=== PATIENT | male | born 1990 | race Caucasian/White ===

== ENCOUNTER 2020-03-19 12:21 | Inpatient (IN) | payer MEDICAID, SELFPAY ==
[2020-03-19] VITALS (7 sets, daily range): BP systolic 120–137; BP diastolic 58–86; PULSE 76–99; RESP 18–22; TEMP 36.1–37.2; O2SAT 100; BMI 26.5; BMI 27.3
--- NOTE | 2020-03-19 12:33 | ED_ITS ---
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 States symptoms improve he ate the same meal that he had stored in the Fridge 2 days later afterwards he had intensified symptoms of upset stomach but again no diarrhea and feeling overall generally unwell with weakness some vague dizziness that he was feeling like he was going to fall. States subsequently a daily to her he developed black stools which he has had several episodes of and last 1 was last night this morning his stool was more yellow and green. Aside from this suspect food intake he denies any recent travel or sick contacts. No recent illness. No OTC medication use i.e. ibuprofen/NSAIDs. Onset (ago): day(s) Exacerbating factors: none Treatments prior to arrival: none Related Data Home Medications Medication Instructions Recorded Confirmed No Known Home Meds 03/19/20 03/19/20 Allergies Allergy/AdvReac Type Severity Reaction Status Date / Time No Known Allergies Allergy Unverified 12/11/19 19:00 [No Known Allergies*] Review of Systems 2 Review of Systems: Constitutional: No Weight loss, No Fever, No Chills, No Night Sweats, No Fatigue, No Malaise ENT/Mouth: No Hearing loss, No Ear Pain, No Nasal Congestion, No Sinus Pain, No Hoarseness, No sore throat, No Rhinorrhea, No Swallowing Difficulty Eyes: No Eye Pain, No Swelling, No Redness, No Foreign Body, No Discharge, No Vision Changes Cardiovascular: No Chest Pain, No SOB, No Dyspnea on Exertion, No Orthopnea, No Edema, No Palpitations Respiratory: No Cough, No Sputum, No Wheezing, No Smoke Exposure, No Dyspnea Gastrointestinal: + Nausea, No Vomiting, No Diarrhea, No Constipation, mild abdominal Pain diffuse abdominal which resolved, + black stools Genitourinary: No Dysuria, No Urinary Frequency, No Hematuria, No Urinary Incontinence, No Urgency, No Flank Pain, No Urinary Flow Changes, No Hesitancy Musculoskeletal: No joint pain, No Myalgias, No Joint Swelling Skin: No Skin Lesions, No rash Neuro: No Weakness, No Numbness, No Paresthesias, No Loss of Consciousness, + Dizziness/lightheadedness, No Headache Psych: No Social Issues Heme/Lymph: No Bruising, No Bleeding,No Lymphadenopathy Endocrine: No Polyuria, No Polydipsia, No Temperature Intolerance Yes all other systems are reviewed and are negative [facility] Past Medical History Medical History No known health problems Social History Social History Advance Directives: No Advance Directives Information Provided: Yes Physical Exam Vital Signs: Vital Signs: Last Vital Signs Temp 97 F 03/19/20 12:53 Pulse 91 03/19/20 12:53 Resp 18 03/19/20 12:53 BP 137/86 03/19/20 12:53 Pulse Ox 100 03/19/20 12:53 Body Mass Index 26.5 Reviewed Const: General: cooperative and healthy appearing; No acute distress or intoxicated appearing Nutritional Appearance: average body habitus Orientation/consciousness: patient oriented x3 HENMT: Head: Yes normal to inspection Ears: hearing grossly normal b ilaterally Eyes: General: appearance normal, both eyes and all related structures Visual Ross: normal visual ross by confrontation Neck: Neck: Yes normal visual inspection and No tender Thyroid: Thyroid normal Chest: Chest palpation & inspection: normal inspection of the chest Resp: Effort & Inspection: normal respiratory effort Cardio: Jugular venous distension: no JVD Rhythm: regular rhythm Heart sounds: S1 normal heart sound present and S2 normal heart sound present GI: Inspection: Yes normal to inspection Palpation (GI): Soft to palpation Percussion: Yes normal to percussion Auscultation: normal bowel sounds : General: Yes no CVA tenderness Back/Spine/Pelvis: Back: no CVA tenderness Skin: Other: Slightly pale to the hands General skin exam: no rashes or lesions noted Neuro: General: patient oriented x3 Extrem: General: Yes normal to inspection Course Course Course Narrative: Interview otherwise healthy 30-year-old male presenting with complaint of upset GI/black tarry stools with symptoms onset after suspect food at home no prior history. On exam does appear slightly pale for his ethnicity. Plan for labs, type and screen, occult stool. Will treat with gradual fluids. Reevaluation(s) Reevaluation #1: Occult stool positive, visually black stool. Stool sent for analysis. Lab shows H&H of 8.4/ with no previous comparison. Electrolytes otherwise without any significant derangements. CT of the abdomen without any acute abnormalities. Given dose of 80 mg of IV Protonix. GI consulted, plan for admission. Consultations Consultation #1: GI Dr. Dye, ppi, question scope will follow. Admit. Consultation #2: Case discussed with hospitalist Dr. Mercado at bedside for evaluation/admission. Medical Decision Making Lab Data Result diagrams: 03/19/20 13:38 03/19/20 13:44 Labs: Lab Results 03/19/20 03/19/20 03/19/20 Range/Units 13:37 13:37 13:37 WBC (4.8-10.8) X10*3/uL RBC (4.60-5.80) X10*6/uL Hgb (14.0-18.0) g/dl Hct (42-52) % MCV (80-98) fL MCH (27.0-33.0) pg MCHC (31.0-36.0) g/dl RDW (11.0-16.0) % Plt Count (160-400) X10*3/uL MPV (9.4-12.4) fL Immature Gran % (Auto) (0.0-0.4) % Neut % (Auto) (45-73) % Lymph % (Auto) (20-40) % [place] % (Auto) (2-11) % Eos % (Auto) (0-4) % Baso % (Auto) (0-2) % Lymph # (Auto) (1.2-4.9) X10*3/uL [place] # (Auto) (0.1-1.2) X10*3/uL Eos # (Auto) (0.0-0.4) X10*3/uL Baso # (Auto) (0.0-0.2) X10*3/uL Abs Immat Gran (auto) (0.00-0.03) X10*3/uL Absolute Neuts (auto) (2.0-8.3) X10*3/uL Absolute Nucleated RBC (0.0-0.012) X10*3/uL Nucleated RBC % (auto) (0.0-0.2) /100WBC PT (10.8-13.0) SEC INR (0.9-1.1) APTT (24.1-38.0) SEC Sodium (135-145) mmol/L Potassium (3.3-5.1) mmol/l Chloride (96-108) mmol/L Carbon Dioxide (22-29) mmol/L Anion Gap (12-20) BUN (9-16) mg/dL Creatinine (0.5-1.4) mg/dL Estim Creat Clear Calc Estimated GFR Random Glucose (60-115) mg/dL Calcium (8.4-10.2) mg/dL Magnesium (1.6-2.6) mg/dL Total Bilirubin (0.0-1.0) mg/dL AST (5-37) U/L ALT (0-40) U/L Alkaline Phosphatase (39-117) U/L Troponin I High Sens (<3.5-35.0) ng/L Total Protein (6.5-8.0) g/dL Albumin (3.5-5.0) g/dL Urine Color YELLOW Urine Appearance HAZY Urine pH 7.5 (5.0-8.0) Ur Specific [place] 1.025 (1.005-1.025) Urine Protein NEG (NEG-TRACE) MG/DL Urine Glucose (UA) NEG (NEG) MG/DL Urine Ketones NEG (NEG) MG/DL Urine Blood NEG (NEG) Urine Nitrite NEG (NEG) Ur Leukocyte Esterase NEG (NEG) Urine RBC 0 (0) /HPF Urine WBC 0-2 (0-4) /HPF Ur Squamous Epith Cells NONE /LPF Amorphous Sediment 2+ /LPF Urine Bacteria NONE /LPF Stool Occult Blood POS (NEG) Blood Type O Positive Antibody Screen NEGATIVE 03/19/20 03/19/20 03/19/20 Range/Units 13:38 13:38 13:44 WBC 7.8 (4.8-10.8) X10*3/uL RBC 2.81 L (4.60-5.80) X10*6/uL Hgb 8.4 L (14.0-18.0) g/dl Hct 26.3 L (42-52) % MCV 93.6 (80-98) fL MCH 29.9 (27.0-33.0) pg MCHC 31.9 (31.0-36.0) g/dl RDW 13.0 (11.0-16.0) % Plt Count 166 (160-400) X10*3/uL MPV 12.6 H (9.4-12.4) fL Immature Gran % (Auto) 0.6 H (0.0-0.4) % Neut % (Auto) 58.5 (45-73) % Lymph % (Auto) 30.2 (20-40) % [place] % (Auto) 9.0 (2-11) % Eos % (Auto) 1.4 (0-4) % Baso % (Auto) 0.3 (0-2) % Lymph # (Auto) 2.3 (1.2-4.9) X10*3/uL [place] # (Auto) 0.7 (0.1-1.2) X10*3/uL Eos # (Auto) 0.1 (0.0-0.4) X10*3/uL Baso # (Auto) 0.0 (0.0-0.2) X10*3/uL Abs Immat Gran (auto) 0.05 H (0.00-0.03) X10*3/uL Absolute Neuts (auto) 4.5 (2.0-8.3) X10*3/uL Absolute Nucleated RBC 0.000 (0.0-0.012) X10*3/uL Nucleated RBC % (auto) 0.0 (0.0-0.2) /100WBC PT 12.2 (10.8-13.0) SEC INR 1.0 (0.9-1.1) APTT 31.0 (24.1-38.0) SEC Sodium (135-145) mmol/L Potassium (3.3-5.1) mmol/l Chloride (96-108) mmol/L Carbon Dioxide (22-29) mmol/L Anion Gap (12-20) BUN (9-16) mg/dL Creatinine (0.5-1.4) mg/dL Estim Creat Clear Calc Estimated GFR Random Glucose (60-115) mg/dL Calcium (8.4-10.2) mg/dL Magnesium (1.6-2.6) mg/dL Total Bilirubin (0.0-1.0) mg/dL AST (5-37) U/L ALT (0-40) U/L Alkaline Phosphatase (39-117) U/L Troponin I High Sens 6.0 (<3.5-35.0) ng/L Total Protein (6.5-8.0) g/dL Albumin (3.5-5.0) g/dL Urine Color Urine Appearance Urine pH (5.0-8.0) Ur Specific [place] (1.005-1.025) Urine Protein (NEG-TRACE) MG/DL Urine Glucose (UA) (NEG) MG/DL Urine Ketones (NEG) MG/DL Urine Blood (NEG) Urine Nitrite (NEG) Ur Leukocyte Esterase (NEG) Urine RBC (0) /HPF Urine WBC (0-4) /HPF Ur Squamous Epith Cells /LPF Amorphous Sediment /LPF Urine Bacteria /LPF Stool Occult Blood (NEG) Blood Type Antibody Screen 03/19/20 Range/Units 13:44 WBC (4.8-10.8) X10*3/uL RBC (4.60-5.80) X10*6/uL Hgb (14.0-18.0) g/dl Hct (42-52) % MCV (80-98) fL MCH (27.0-33.0) pg MCHC (31.0-36.0) g/dl RDW (11.0-16.0) % Plt Count (160-400) X10*3/uL MPV (9.4-12.4) fL Immature Gran % (Auto) (0.0-0.4) % Neut % (Auto) (45-73) % Lymph % (Auto) (20-40) % [place] % (Auto) (2-11) % Eos % (Auto) (0-4) % Baso % (Auto) (0-2) % Lymph # (Auto) (1.2-4.9) X10*3/uL [place] # (Auto) (0.1-1.2) X10*3/uL Eos # (Auto) (0.0-0.4) X10*3/uL Baso # (Auto) (0.0-0.2) X10*3/uL Abs Immat Gran (auto) (0.00-0.03) X10*3/uL Absolute Neuts (auto) (2.0-8.3) X10*3/uL Absolute Nucleated RBC (0.0-0.012) X10*3/uL Nucleated RBC % (auto) (0.0-0.2) /100WBC PT (10.8-13.0) SEC INR (0.9-1.1) APTT (24.1-38.0) SEC Sodium 136 (135-145) mmol/L Potassium 4.3 (3.3-5.1) mmol/l Chloride 102 (96-108) mmol/L Carbon Dioxide 29 (22-29) mmol/L Anion Gap 9 L (12-20) BUN 12 (9-16) mg/dL Creatinine 0.99 (0.5-1.4) mg/dL Estim Creat Clear Calc 110.6 Estimated GFR > 60 Random Glucose 115 (60-115) mg/dL Calcium 8.6 (8.4-10.2) mg/dL Magnesium 2.1 (1.6-2.6) mg/dL Total Bilirubin 0.3 (0.0-1.0) mg/dL AST 32 (5-37) U/L ALT 59 H (0-40) U/L Alkaline Phosphatase 70 (39-117) U/L Troponin I High Sens (<3.5-35.0) ng/L Total Protein 6.2 L (6.5-8.0) g/dL Albumin 4.0 (3.5-5.0) g/dL Urine Color Urine Appearance Urine pH (5.0-8.0) Ur Specific [place] (1.005-1.025) Urine Protein (NEG-TRACE) MG/DL Urine Glucose (UA) (NEG) MG/DL Urine Ketones (NEG) MG/DL Urine Blood (NEG) Urine Nitrite (NEG) Ur Leukocyte Esterase (NEG) Urine RBC (0) /HPF Urine WBC (0-4) /HPF Ur Squamous Epith Cells /LPF Amorphous Sediment /LPF Urine Bacteria /LPF Stool Occult Blood (NEG) Blood Type Antibody Screen Imaging Data Abdominal/pelvis CT with IV contrast: Radiologist's impression: [address] [address] [address] Scan Report Signed Patient: Sarah BrandMR#: [id number] : 1990Acct:[id number] Age/Sex: 30 / MADM Date: 03/19/20 Loc: HO.ED Attending Dr: Ordering Physician: Giovany Babb NP Date of Service: 03/19/20 Procedure(s): CT abdomen pelvis w con Accession Number(s): [id number] cc: Giovany Babb MONOGRAM AND LETTER PASTER~ EXAMINATION: CT ABDOMEN AND PELVIS WITH CONTRAST CLINICAL INFORMATION: Abdominal pain COMPARISON: None TECHNIQUE: Multidetector volumetric images were obtained from the superior aspect of the liver through the pubic symphysis following administration 85 mL of Omnipaque 350 intravenous contrast. Sagittal and coronal reformatted images were obtained on the technologist's workstation. Oral contrast: No This CT examination was performed using dose optimization techniques as appropriate, variously including the following: *Automated exposure control *Adjustment of mA and/or kV according to patient size (this includes techniques or standardized protocols for targeted exams where dose is matched to indication/reason for exam; i.e. extremities or head) *Use of iterative reconstruction technique DLP: 564 mGy-cm FINDINGS: LUNG BASES: The visualized lung bases are unremarkable. LIVER, GALLBLADDER, AND BILIARY TREE: The liver is normal in size, shape, and attenuation. There are couple sub-5 mm hypodensities within the medial segment, statistically a small cyst. No suspicious liver lesions. No intrahepatic or extrahepatic biliary ductal dilatation is present. Gallbladder unremarkable. PANCREAS: Unremarkable. SPLEEN: Unremarkable. ADRENAL GLANDS: Unremarkable. KIDNEYS AND URETERS: The kidneys are normal in size, shape, and attenuation. No hydronephrosis, hydroureter, or calculi seen. No perinephric stranding. BLADDER: Unremarkable. GASTROINTESTINAL TRACT: The small and large bowel are unremarkable. The appendix is unremarkable. ABDOMINAL WALL: No significant hernia is appreciated. LYMPH NODES: Normal. VASCULAR: Unremarkable. PELVIC VISCERA: Unremarkable. OSSEOUS STRUCTURES: Unremarkable. CT/CT abdomen pelvis w con IMPRESSION: No significant abnormality. Dictated By:TOREY JAIN MD Signed By:<Electronically signed by TOREY JAIN MD in OV>03/19/20 1509 DD/ 1411 TD/TT: Music Coordinator: SORAYA Discharge Plan Discharge Clinical Impression: Acute upper gastrointestinal bleeding, Anemia, Gastroenteritis Patient Disposition: Admitted As Inpatient
[2020-03-19 13:48] LABS: Basophils Percent Auto 0.3 % (0-2); Eosinophils Absolute Auto 0.1 X10*3/uL (0.0-0.4); Eosinophils Percent Auto 1.4 % (0-4); Hematocrit 26.3 % (42-52); Hemoglobin 8.4 g/dl (14.0-18.0); Imm Gran Abs Auto 0.05 X10*3/uL (0.00-0.03); Imm Gran Pct Auto 0.6 % (0.0-0.4); Lymphocytes Absolute Auto 2.3 X10*3/uL (1.2-4.9); Lymphocytes Percent Auto 30.2 % (20-40); Mean Corpuscular HGB Conc 31.9 g/dl (31.0-36.0); Mean Corpuscular Hemoglobin 29.9 pg (27.0-33.0); Mean Corpuscular Volume 93.6 fL (80-98); Mean Platelet Volume 12.6 fL (9.4-12.4); Monocytes Absolute Auto 0.7 X10*3/uL (0.1-1.2); Neutrophils Absolute Auto 4.5 X10*3/uL (2.0-8.3); Neutrophils Percent Auto 58.5 % (45-73); Platelet Count 166 X10*3/uL (160-400); Red Blood Count 2.81 X10*6/uL (4.60-5.80); White Blood Count 7.8 X10*3/uL (4.8-10.8)
[2020-03-19 13:50] LABS: Glucose Urine UA NEG (NEG); Leukocyte Esterase Urine NEG (NEG); Nitrite Urine NEG (NEG); PH 7.5 (5.0-8.0); Specific Gravity - Urine 1.025 (1.005-1.025); Urine Blood NEG (NEG); Urine Ketones NEG (NEG); Urine Protein NEG (NEG-TRACE)
[2020-03-19 13:50] LABS: MANUAL DIFF FLAG NO
[2020-03-19 13:52] LABS: Appearance Urine HAZY; Color Urine YELLOW
[2020-03-19 13:55] LABS: Prothrombin Time 12.2 SEC (10.8-13.0)
[2020-03-19] MEDS: 0.9 % Sodium Chloride 1,000 ML 999 ML IV (13:55)
[2020-03-19 14:06] LABS: WBC Urine 0-2 /HPF (0-4)
[2020-03-19 14:07] LABS: Amorphous Sediment Urine 2+ /LPF; RBC Urine 0 /HPF (0)
--- NOTE | 2020-03-19 14:09 | ECG_ITS ---
Test Reason : WEAKNESS Blood Pressure : / mmHG Vent. Rate : 079 BPM Atrial Rate : 079 BPM P-R Int : 128 ms QRS Dur : 104 ms QT Int : 376 ms P-R-T Axes : 056 004 005 degrees QTc Int : 431 ms Sinus rhythm with marked sinus arrhythmia Otherwise normal ECG When compared with ECG of 23-MAR-2015 11:29, Incomplete right bundle branch block is no longer Present Referred By: Giovany Babb Electronically Signed By:HEIDI CHACON MD
--- NOTE | 2020-03-19 14:11 | CT_ITS ---
EXAMINATION: CT ABDOMEN AND PELVIS WITH CONTRAST CLINICAL INFORMATION: Abdominal pain COMPARISON: None TECHNIQUE: Multidetector volumetric images were obtained from the superior aspect of the liver through the pubic symphysis following administration 85 mL of Omnipaque 350 intravenous contrast. Sagittal and coronal reformatted images were obtained on the technologist's workstation. Oral contrast: No This CT examination was performed using dose optimization techniques as appropriate, variously including the following: *Automated exposure control *Adjustment of mA and/or kV according to patient size (this includes techniques or standardized protocols for targeted exams where dose is matched to indication/reason for exam; i.e. extremities or head) *Use of iterative reconstruction technique DLP: 564 mGy-cm FINDINGS: LUNG BASES: The visualized lung bases are unremarkable. LIVER, GALLBLADDER, AND BILIARY TREE: The liver is normal in size, shape, and attenuation. There are couple sub-5 mm hypodensities within the medial segment, statistically a small cyst. No suspicious liver lesions. No intrahepatic or extrahepatic biliary ductal dilatation is present. Gallbladder unremarkable. PANCREAS: Unremarkable. SPLEEN: Unremarkable. ADRENAL GLANDS: Unremarkable. KIDNEYS AND URETERS: The kidneys are normal in size, shape, and attenuation. No hydronephrosis, hydroureter, or calculi seen. No perinephric stranding. BLADDER: Unremarkable. GASTROINTESTINAL TRACT: The small and large bowel are unremarkable. The appendix is unremarkable. ABDOMINAL WALL: No significant hernia is appreciated. LYMPH NODES: Normal. VASCULAR: Unremarkable. PELVIC VISCERA: Unremarkable. OSSEOUS STRUCTURES: Unremarkable. CT/CT abdomen pelvis w con IMPRESSION: No significant abnormality.
[2020-03-19 14:14] LABS: OBS Int Ctl Valid YES; OBS1 POS (NEG)
[2020-03-19 14:15] LABS: Alanine Aminotransferase 59 U/L (0-40); Alkaline Phosphatase 70 U/L (39-117); Anion Gap 9 (12-20); Aspartate Amino Transferase 32 U/L (5-37); Bilirubin Total 0.3 mg/dL (0.0-1.0); Blood Urea Nitrogen 12 mg/dL (9-16); Calcium 8.6 mg/dL (8.4-10.2); Carbon Dioxide 29 mmol/L (22-29); Chloride 102 mmol/L (96-108); Creatinine Clr Calc Pharmacy 110.6; Estimated Glomerular Filt Rate > 60; Glucose Random 115 mg/dL (60-115); Magnesium 2.1 mg/dL (1.6-2.6); Potassium 4.3 mmol/l (3.3-5.1); Sodium 136 mmol/L (135-145); Total Protein 6.2 g/dL (6.5-8.0)
[2020-03-19] MEDS: Pantoprazole Sodium 40 MG/10 ML VIAL 80 MG IVPUSH (14:57)
[2020-03-19] MEDS: iohexoL 350 MG/ML 100 ML INFUS..BTL 85 ML IV (15:00)
[2020-03-19 15:22] LABS: Influenza A PCR NEGATIVE (Negative); Influenza B PCR NEGATIVE (Negative); Resp Syncy Virus RNA Qual PCR NEGATIVE (Negative); SARS COV2 PCR INHOUSE NEGATIVE (Negative)
--- NOTE | 2020-03-19 15:57 | PM.IMHP ---
History of Present Illness Date of Service: 03/19/20 Chief Complaint: Fatigue, melena, epigastric pain the A 30 years old male with no significant past medical history presenting to the hospital with complaint of weakness, shortness of breath, chest tightness and epigastric pain the last week or so. He reports a eating a meat sandwhich almost 1 week ago which she was unable to finish the same time and finished it almost 2 days later but noticed directly after that nausea and few episodes of diarrhea with no vomiting, fever or chills. During the last week he became more lethargic and the pills shortness of breath with exertion. He reports chest tightness as well with minimal activities. No chest pain or palpitation. Going to the bathroom for the last 4 days he was noticing dark stool with no blood. He presented to the emergency today for further evaluation of melena and weakness. Review of Systems Review of Systems: No fever, chills or weakness No chest pain, palpitation Dyspnea on exertion but no the coughing Epigastric abdominal pain, reported nausea but no vomiting No urinary symptoms No any rash or wounds PMFSH Medical History No known health problems Social History Advance Directives: No Advance Directives Information Provided: Yes Meds Allergies Allergy/AdvReac Type Severity Reaction Status Date / Time No Known Allergies Allergy Unverified 12/11/19 19:00 [No Known Allergies*] Home Medications Medication Instructions Recorded Confirmed Type No Known Home Meds 03/19/20 03/19/20 History Physical Exam Vital Signs and Narrative: Vital Signs: Last Vital Signs Temp 97 F 03/19/20 12:53 Pulse 91 03/19/20 12:53 Resp 18 03/19/20 12:53 BP 137/86 03/19/20 12:53 Pulse Ox 100 03/19/20 12:53 Body Mass Index 26.5 Constitutional : Alert, oriented, not in distress Neck : Normal inspection, Supple Cardiovascular : RRR, S1 S2, no lower extremity edema Respiratory : Good bilateral air entry, no crackles, wheezes or rhonchi Gastrointestinal: soft, lax, Normal bowel sounds, Non tender Skin : Warm/Dry, No rash Neurological : Alert & oriented x3, No focal deficit the Results Labs CBC and Chem 7: 03/19/20 13:38 03/19/20 13:44 Labs: Laboratory Results - last 24 hr 03/19/20 03/19/20 03/19/20 13:37 13:37 13:37 MCV MCH MCHC RDW Plt Count MPV Immature Gran % (Auto) Neut % (Auto) Lymph % (Auto) [place] % (Auto) Eos % (Auto) Baso % (Auto) Lymph # (Auto) [place] # (Auto) Eos # (Auto) Baso # (Auto) Abs Immat Gran (auto) Absolute Neuts (auto) Absolute Nucleated RBC Nucleated RBC % (auto) PT INR APTT Anion Gap Estim Creat Clear Calc Estimated GFR Random Glucose Calcium Magnesium Total Bilirubin AST ALT Alkaline Phosphatase Troponin I High Sens Total Protein Albumin Urine Color YELLOW Urine Appearance HAZY Urine pH 7.5 Ur Specific [place] 1.025 Urine Protein NEG Urine Glucose (UA) NEG Urine Ketones NEG Urine Blood NEG Urine Nitrite NEG Ur Leukocyte Esterase NEG Urine RBC 0 Urine WBC 0-2 Ur Squamous Epith Cells NONE Amorphous Sediment 2+ Urine Bacteria NONE Stool Occult Blood POS Coronavirus (PCR) Influenza Type A (PCR) Influenza Type B (PCR) RSV RNA Qual (PCR) Blood Type O Positive Antibody Screen NEGATIVE Crossmatch See Detail 03/19/20 03/19/20 03/19/20 13:38 13:38 13:44 MCV 93.6 MCH 29.9 MCHC 31.9 RDW 13.0 Plt Count 166 MPV 12.6 H Immature Gran % (Auto) 0.6 H Neut % (Auto) 58.5 Lymph % (Auto) 30.2 [place] % (Auto) 9.0 Eos % (Auto) 1.4 Baso % (Auto) 0.3 Lymph # (Auto) 2.3 [place] # (Auto) 0.7 Eos # (Auto) 0.1 Baso # (Auto) 0.0 Abs Immat Gran (auto) 0.05 H Absolute Neuts (auto) 4.5 Absolute Nucleated RBC 0.000 Nucleated RBC % (auto) 0.0 PT 12.2 INR 1.0 APTT 31.0 Anion Gap Estim Creat Clear Calc Estimated GFR Random Glucose Calcium Magnesium Total Bilirubin AST ALT Alkaline Phosphatase Troponin I High Sens 6.0 Total Protein Albumin Urine Color Urine Appearance Urine pH Ur Specific [place] Urine Protein Urine Glucose (UA) Urine Ketones Urine Blood Urine Nitrite Ur Leukocyte Esterase Urine RBC Urine WBC Ur Squamous Epith Cells Amorphous Sediment Urine Bacteria Stool Occult Blood Coronavirus (PCR) Influenza Type A (PCR) Influenza Type B (PCR) RSV RNA Qual (PCR) Blood Type Antibody Screen Crossmatch 03/19/20 03/19/20 13:44 14:28 MCV MCH MCHC RDW Plt Count MPV Immature Gran % (Auto) Neut % (Auto) Lymph % (Auto) [place] % (Auto) Eos % (Auto) Baso % (Auto) Lymph # (Auto) [place] # (Auto) Eos # (Auto) Baso # (Auto) Abs Immat Gran (auto) Absolute Neuts (auto) Absolute Nucleated RBC Nucleated RBC % (auto) PT INR APTT Anion Gap 9 L Estim Creat Clear Calc 110.6 Estimated GFR > 60 Random Glucose 115 Calcium 8.6 Magnesium 2.1 Total Bilirubin 0.3 AST 32 ALT 59 H Alkaline Phosphatase 70 Troponin I High Sens Total Protein 6.2 L Albumin 4.0 Urine Color Urine Appearance Urine pH Ur Specific [place] Urine Protein Urine Glucose (UA) Urine Ketones Urine Blood Urine Nitrite Ur Leukocyte Esterase Urine RBC Urine WBC Ur Squamous Epith Cells Amorphous Sediment Urine Bacteria Stool Occult Blood Coronavirus (PCR) NEGATIVE Influenza Type A (PCR) NEGATIVE Influenza Type B (PCR) NEGATIVE RSV RNA Qual (PCR) NEGATIVE Blood Type Antibody Screen Crossmatch Imaging Radiologist's Impressions: Impressions Abdomen/Pelvis CT 03/19/20 14:11 IMPRESSION: No significant abnormality. Assessment and Plan (1) Acute upper gastrointestinal bleeding: Status: Acute (2) Acute blood loss anemia: Status: Acute (3) Symptomatic anemia: Status: Acute A 30 years old male with no significant past medical history presenting to the hospital with complaint of weakness, shortness of breath, chest tightness and epigastric pain the last week or so. Upper GI bleed Positive occult blood and melena Started on IV Protonix b.i.d. To get gastroenterology evaluation the morning Acute blood loss anemia Symptomatic anemia Hemoglobin of 8, unknown baseline but reports it was normal 2 years ago Seems to be a result of bleeding ulcer CT scan of the abdomen negative for any acute findings To transfuse a unit of blood today Monitor H and H DVT PPX Early ambulation
--- NOTE | 2020-03-19 17:18 | PC.NURSE ---
REPORT GIVEN FOR ADMISSION TO [facility]
[2020-03-19] MEDS: 0.9 % Sodium Chloride Flush 3 ML SYRINGE IVFLUSH (18:19)
[2020-03-19] MEDS: Acetaminophen 325 MG TABLET 650 MG PO (19:20)
[2020-03-20] VITALS: BP 113/57; PULSE 65; RESP 18; TEMP 36.6; O2SAT 99
[2020-03-20] MEDS: 0.9 % Sodium Chloride Flush 3 ML SYRINGE IVFLUSH ×4 (00:20→22:24)
[2020-03-20 04:00] VITALS: BP 107/60; PULSE 67; RESP 18; TEMP 36.6; O2SAT 100
[2020-03-20] MEDS: Pantoprazole Sodium 40 MG/10 ML VIAL IVPUSH ×2 (06:17→15:40)
[2020-03-20 06:57] LABS: Hematocrit 31.5 % (42-52); Mean Corpuscular HGB Conc 31.7 g/dl (31.0-36.0); Mean Corpuscular Hemoglobin 29.2 pg (27.0-33.0); Mean Corpuscular Volume 92.1 fL (80-98); Platelet Count 165 X10*3/uL (160-400); Red Blood Count 3.42 X10*6/uL (4.60-5.80); Red Cell Distribution Width 14.4 % (11.0-16.0); White Blood Count 7.2 X10*3/uL (4.8-10.8)
[2020-03-20 07:24] LABS: Anion Gap 11 (12-20); Blood Urea Nitrogen 11 mg/dL (9-16); Calcium 8.7 mg/dL (8.4-10.2); Carbon Dioxide 29 mmol/L (22-29); Chloride 105 mmol/L (96-108); Creatinine Clr Calc Pharmacy 107.3; Estimated Glomerular Filt Rate > 60; Glucose Random 94 mg/dL (60-115); Potassium 4.6 mmol/l (3.3-5.1); Sodium 140 mmol/L (135-145)
[2020-03-20 08:00] VITALS: BP 139/78; PULSE 64; RESP 19; TEMP 37; O2SAT 100
--- NOTE | 2020-03-20 10:55 | MHC.CM.PN ---
TALKED WITH PT S PT IS INDEPENDENT CM INTERVENTION IS NOT INDICATED DC PLAN HOME NO SERVCEIS
--- NOTE | 2020-03-20 11:26 | PM.GICN ---
History of Present Illness Data of Consult Service Date: 03/20/20 Requesting physician: Liz Mercado Primary Care Provider: Unknown Physician HPI Reason for consult: acute blood losss anemia 30 years old male with no significant past medical history who I am asked to see for assessment for acute blood loss anemia. He has had 1 week of lethargy and worsening SOB. He has also had moderate severe peigastric pain he also noted passage of black stools for the last week pain made worse with food he denies nausea or vomiting no fevers or chills not taking nsaid or aspirin No chest pain or palpitation. denies dysphagsi never had EGD in past or hx of PUD HGB was 8 g/dl on admission and got 1 unit with good increment to 10 g/dl CT abdomen was done and was normal FHx--no FH of PUD or stoamch issue Review of Systems Review of Systems: No fever, chills or weakness No chest pain, palpitation Dyspnea on exertion but no the coughing Epigastric abdominal pain, No urinary symptoms No any rash or wounds PMFSH Past Medical History Medical History No known health problems Social History Social History Household Members: Spouse Housing: Apartment Smoking Status: Never smoker Use of substances other than those prescribed or required for medical reasons: No Currently Displaying Signs/Symptoms of Drug Intoxication Withdrawal: No Have you been hit, kicked, punched, or otherwise hurt by someone within the past year? If so, by whom?: No Do you feel safe in your current relationship?: Yes Is there a partner from a previous relationship who is making you feel unsafe now?: No Are you made to feel afraid or neglected: No Advance Directives: No Advance Directives Information Provided: Yes Do you have thoughts of harming others: None Do you have a plan to hurt others: No Plan Recently lost weight without trying: No service: No Meds Allergies Allergy/AdvReac Type Severity Reaction Status Date / Time No Known Allergies Allergy Unverified 12/11/19 19:00 [No Known Allergies*] Home Medications Medication Instructions Recorded Confirmed Type No Known Home Meds 03/19/20 03/19/20 History Physical Exam Vital Signs: Vital Signs: Last Vital Signs Temp 98.6 F 03/20/20 08:00 Pulse 64 03/20/20 08:00 Resp 19 03/20/20 08:00 BP 139/78 03/20/20 08:00 Pulse Ox 100 03/20/20 08:00 Body Mass Index 27.3 Const: General: cooperative and healthy appearing; No acute distress or intoxicated appearing Nutritional Appearance: average body habitus Orientation/consciousness: patient oriented x3 HENMT: Head: Yes normal to inspection Ears: hearing grossly normal bilaterally Eyes: General: appearance normal, both eyes and all related structures Visual Gutierrez: normal visual gutierrez by confrontation Neck: Neck: Yes normal visual inspection and No tender Thyroid: Thyroid normal Chest: Chest palpation & inspection: normal inspection of the chest Resp: Effort & Inspection: normal respiratory effort Cardio: Jugular venous distension: no JVD Rhythm: regular rhythm Heart sounds: S1 normal heart sound present and S2 normal heart sound present GI: Inspection: Yes normal to inspection Palpation (GI): Soft to palpation and Tenderness to palpation present (GI) in the epigastrum Percussion: Yes normal to percussion Auscultation: normal bowel sounds : General: Yes no CVA tenderness Back/Spine/Pelvis: Back: no CVA tenderness Skin: Other: pallor General skin exam: no rashes or lesions noted Neuro: General: patient oriented x3 Extrem: General: Yes normal to inspection Results Labs CBC & Chem 7: 03/20/20 06:26 03/20/20 06:26 Labs: Short CBC 03/19/20 03/20/20 Range/Units 13:38 06:26 WBC 7.8 7.2 (4.8-10.8) X10*3/uL Hgb 8.4 L 10.0 L (14.0-18.0) g/dl Hct 26.3 L 31.5 L (42-52) % Plt Count 166 165 (160-400) X10*3/uL BMP 03/19/20 03/20/20 13:44 06:26 Sodium 136 140 Potassium 4.3 4.6 Chloride 102 105 Carbon Dioxide 29 29 BUN 12 11 Creatinine 0.99 1.02 Calcium 8.6 8.7 Liver Function 03/19/20 Range/Units 13:44 Total Bilirubin 0.3 (0.0-1.0) mg/dL AST 32 (5-37) U/L ALT 59 H (0-40) U/L Alkaline Phosphatase 70 (39-117) U/L Albumin 4.0 (3.5-5.0) g/dL Urine 03/19/20 Range/Units 13:37 Urine Color YELLOW Urine Appearance HAZY Urine pH 7.5 (5.0-8.0) Ur Specific [place] 1.025 (1.005-1.025) Urine Protein NEG (NEG-TRACE) MG/DL Urine Glucose (UA) NEG (NEG) MG/DL Microbiology Microbiology Results: Microbiology 03/19/20 14:58 Stool Stool Culture - Preliminary Normal so far. Assessment and Plan (1) Acute upper gastrointestinal bleeding: Status: Acute (2) Acute blood loss anemia: Status: Acute 1/ Melena and acute blood loss anemia prob from peptic ulcer, less likely neoplasia, ddx; esophagitis, gastritis, AVM, dieulafoy PLAN: 1/ Cont with PPI 2/ can have PO diet, if HGB trends downwards then put on clears, plan for EGD Sunday otherwise tomorrow if any deterioration 3/ transfuse if hgb < 7 g/dl
[2020-03-20 11:39] VITALS: BP 112/68; PULSE 87; RESP 18; TEMP 36.7; O2SAT 92
[2020-03-20 15:46] VITALS: BP 124/76; PULSE 76; RESP 18; TEMP 37.1; O2SAT 100
[2020-03-20 16:55] LABS: Leukocytes Stool Qualitative NEGATIVE (NEGATIVE)
[2020-03-20 17:04] LABS: CDIFF Ag Negative (Negative); CDIFF Internal ctrl Dots and bkg OK (V); CDiff Toxin Negative (Negative)
--- NOTE | 2020-03-20 17:44 | P.PNIM_ITS ---
Subjective Subjective Date of Service: 03/20/20 Interval History: the patient was seen and evaluated this morning Laying in bed, feels comfortable Denies any fever, chills or shortness of breath No reported other overnight events. Systemic review: No fever, chills or weakness No chest pain, palpitation No shortness of breath or coughing No abdominal pain, nausea or vomiting No urinary symptoms No any rash or wounds Physical Exam 2 Vital Signs: Vital Signs: Last Vital Signs Temp 98.8 F 03/20/20 15:46 Pulse 76 03/20/20 15:46 Resp 18 03/20/20 15:46 BP 124/76 03/20/20 15:46 Pulse Ox 100 03/20/20 15:46 Body Mass Index 27.3 Constitutional : Alert, oriented, not in distress Neck : Normal inspection, Supple Cardiovascular : RRR, S1 S2, no lower extremity edema Respiratory : Good bilateral air entry, no crackles, wheezes or rhonchi Gastrointestinal: soft, lax, Normal bowel sounds, Non tender Skin : Warm/Dry, No rash Neurological : Alert & oriented x3, No focal deficit Objective Data Current Medications Generic Name Dose Route Start Last Admin Trade Name Freq PRN Reason Stop Dose Admin Acetaminophen 650 mg 03/19/20 17:40 03/19/20 19:20 Acetaminophen 325 Mg Tablet PO 650 mg Q6H PRN Administration Pain, Mild (Pain Scale 1-3) Ondansetron HCl 4 mg 03/19/20 17:40 Ondansetron Hcl 4 Mg/2 Ml Vial IVPUSH Q8H PRN Nausea and Vomiting Pantoprazole Sodium 40 mg 03/19/20 16:30 03/20/20 15:40 Pantoprazole Sodium 40 Mg/10 Ml Vial IVPUSH 40 mg BID@0630,1630 [facility] Administration Pharmacy Consult 1 each 03/19/20 14:14 Consult Rx Perform Med Rec MISCELLANE ONCE PRN Consult order Sodium Chloride 3 ml 03/19/20 17:40 03/20/20 15:40 0.9 % Sodium Chloride Flush 3 Ml Syringe IVFLUSH 3 ml QSHIFT [facility] Administration Labs CBC & Chem 7: 03/20/20 06:26 03/20/20 06:26 Microbiology Microbiology Results: Microbiology 03/19/20 14:58 Stool Stool Culture - Preliminary Normal so far. Assessment and Plan (1) Acute upper gastrointestinal bleeding: Status: Acute (2) Acute blood loss anemia: Status: Acute (3) Symptomatic anemia: Status: Acute Assessment and Plan: A 30 years old male with no significant past medical history presenting to the hospital with complaint of weakness, shortness of breath, chest tightness and epigastric pain the last week or so. Upper GI bleed Positive occult blood and melena Continue IV Protonix b.i.d. GI input appreciated, endoscopy Sunday Advanced diet as tolerated Acute blood loss anemia Symptomatic anemia Hemoglobin improved to 10 after 1 unit transfusion Seems to be a result of bleeding ulcer CT scan of the abdomen negative for any acute findings Monitor H and H DVT PPX Early ambulation
[2020-03-20 19:02] VITALS: BP 118/68; PULSE 76; RESP 20; TEMP 37; O2SAT 99
--- NOTE | 2020-03-20 20:10 | PC.NURSE ---
[place] 8 pm [place] [facility] [employer]
[2020-03-21] VITALS (7 sets, daily range): BP systolic 96–147; BP diastolic 45–86; PULSE 60–74; RESP 12–16; TEMP 36.6–37.1; O2SAT 98–100
[2020-03-21] MEDS: Pantoprazole Sodium 40 MG/10 ML VIAL IVPUSH ×2 (05:56→17:00)
[2020-03-21 06:58] LABS: Hematocrit 33.2 % (42-52); Hemoglobin 10.5 g/dl (14.0-18.0); Mean Corpuscular HGB Conc 31.6 g/dl (31.0-36.0); Mean Corpuscular Volume 91.7 fL (80-98); Mean Platelet Volume 12.8 fL (9.4-12.4); Platelet Count 175 X10*3/uL (160-400); Red Blood Count 3.62 X10*6/uL (4.60-5.80); Red Cell Distribution Width 14.2 % (11.0-16.0); White Blood Count 7.3 X10*3/uL (4.8-10.8)
[2020-03-21] MEDS: 0.9 % Sodium Chloride Flush 3 ML SYRINGE IVFLUSH ×3 (08:19→23:57)
--- NOTE | 2020-03-21 16:17 | HO.PM.IMPN ---
Subjective Subjective Date of Service: 03/21/20 Interval History: the patient was seen and evaluated this morning Laying in bed, feels comfortable Denies any fever, chills or shortness of breath No reported other overnight events. Systemic review: No fever, chills or weakness No chest pain, palpitation No shortness of breath or coughing No abdominal pain, nausea or vomiting No urinary symptoms No any rash or wounds Physical Exam Vital Signs: Vital Signs: Last Vital Signs Temp 98.4 F 03/21/20 15:14 Pulse 71 03/21/20 15:14 Resp 16 03/21/20 15:14 BP 143/66 H 03/21/20 15:14 Pulse Ox 100 03/21/20 15:14 Body Mass Index 27.3 Constitutional : Alert, oriented, not in distress Neck : Normal inspection, Supple Cardiovascular : RRR, S1 S2, no lower extremity edema Respiratory : Good bilateral air entry, no crackles, wheezes or rhonchi Gastrointestinal: soft, lax, Normal bowel sounds, Non tender Skin : Warm/Dry, No rash Neurological : Alert & oriented x3, No focal deficit Objective Data Current Medications Generic Name Dose Route Start Last Admin Trade Name Freq PRN Reason Stop Dose Admin Acetaminophen 650 mg 03/19/20 17:40 03/19/20 19:20 Acetaminophen 325 Mg Tablet PO 650 mg Q6H PRN Administration Pain, Mild (Pain Scale 1-3) Ondansetron HCl 4 mg 03/19/20 17:40 Ondansetron Hcl 4 Mg/2 Ml Vial IVPUSH Q8H PRN Nausea and Vomiting Pantoprazole Sodium 40 mg 03/19/20 16:30 03/21/20 05:56 Pantoprazole Sodium 40 Mg/10 Ml Vial IVPUSH 40 mg BID@0630,1630 [facility] Administration Pharmacy Consult 1 each 03/19/20 14:14 Consult Rx Perform Med Rec MISCELLANE ONCE PRN Consult order Sodium Chloride 3 ml 03/19/20 17:40 03/21/20 08:19 0.9 % Sodium Chloride Flush 3 Ml Syringe IVFLUSH 3 ml QSHIFT [facility] Administration Labs CBC & Chem 7: 03/21/20 06:15 03/20/20 06:26 Microbiology Microbiology Results: Microbiology 03/19/20 14:58 Stool Stool Culture - Preliminary Normal so far. Assessment and Plan (1) Acute upper gastrointestinal bleeding: Status: Acute (2) Acute blood loss anemia: Status: Acute (3) Symptomatic anemia: Status: Acute Assessment and Plan: A 30 years old male with no significant past medical history presenting to the hospital with complaint of weakness, shortness of breath, chest tightness and epigastric pain the last week or so. Upper GI bleed Positive occult blood and melena Continue IV Protonix b.i.d. GI input appreciated, endoscopy tomorrow Advanced diet as tolerated NPO post midnight Acute blood loss anemia Symptomatic anemia Hemoglobin improved to 10 after 1 unit transfusion Seems to be a result of bleeding ulcer CT scan of the abdomen negative for any acute findings Monitor H and H DVT PPX Early ambulation
--- NOTE | 2020-03-21 17:36 | PC.NURSE ---
Pt a&o, able to make needs known. Updated pt about plan for endo tomoorw, pt understands, and knows NPO at 0000 today. Pt ambulates in room freely and repo's self.
[2020-03-22] VITALS (8 sets, daily range): BP systolic 85–137; BP diastolic 37–80; PULSE 60–98; RESP 13–18; TEMP 36.1–36.7; O2SAT 97–100; BMI 26.6
[2020-03-22] MEDS: Pantoprazole Sodium 40 MG/10 ML VIAL IVPUSH (05:32)
[2020-03-22] MEDS: 0.9 % Sodium Chloride Flush 3 ML SYRINGE IVFLUSH (08:24)
--- NOTE | 2020-03-22 09:34 | P.CONAN_ITS ---
[facility] Past Medical History Medical History No known health problems Social History Social History Household Members: Spouse Housing: Apartment Smoking Status: Never smoker Use of substances other than those prescribed or required for medical reasons: No Currently Displaying Signs/Symptoms of Drug Intoxication Withdrawal: No Have you been hit, kicked, punched, or otherwise hurt by someone within the past year? If so, by whom?: No Do you feel safe in your current relationship?: Yes Is there a partner from a previous relationship who is making you feel unsafe now?: No Are you made to feel afraid or neglected: No Advance Directives: No Advance Directives Information Provided: Yes Do you have thoughts of harming others: None Do you have a plan to hurt others: No Plan Recently lost weight without trying: No service: No Meds Allergies Allergy/AdvReac Type Severity Reaction Status Date / Time No Known Allergies Allergy Verified 03/22/20 08:59 [No Known Allergies*] Home Medications Medication Instructions Recorded Confirmed Type No Known Home Meds 03/19/20 03/19/20 History Exam Exam Date and Time: March 22, 2020 0934 Height,Weight and Vital Signs: Height 5 ft 10 in Weight 84.368 kg Last Vital Signs Temp 97.0 F 03/22/20 09:03 Pulse 98 03/22/20 09:03 Resp 16 03/22/20 09:03 BP 137/80 03/22/20 09:03 Pulse Ox 100 03/22/20 09:03 Pertinent Lab Results Pertinent Lab Results: Laboratory Tests 03/19/20 03/19/20 03/19/20 13:37 13:37 13:37 WBC RBC Hgb Hct MCV MCH MCHC RDW Plt Count MPV Immature Gran % (Auto) Neut % (Auto) Lymph % (Auto) [place] % (Auto) Eos % (Auto) Baso % (Auto) Lymph # (Auto) [place] # (Auto) Eos # (Auto) Baso # (Auto) Abs Immat Gran (auto) Absolute Neuts (auto) Absolute Nucleated RBC Nucleated RBC % (auto) PT INR APTT Sodium Potassium Chloride Carbon Dioxide Anion Gap BUN Creatinine Estim Creat Clear Calc Estimated GFR Random Glucose Calcium Magnesium Total Bilirubin AST ALT Alkaline Phosphatase Troponin I High Sens Total Protein Albumin Urine Color YELLOW Urine Appearance HAZY Urine pH 7.5 Ur Specific [place] 1.025 Urine Protein NEG Urine Glucose (UA) NEG Urine Ketones NEG Urine Blood NEG Urine Nitrite NEG Ur Leukocyte Esterase NEG Urine RBC 0 Urine WBC 0-2 Ur Squamous Epith Cells NONE Amorphous Sediment 2+ Urine Bacteria NONE Stool Occult Blood POS Stool Leukocytes, Qual C. difficile Toxin A&B C. difficile Antigen C. difficile Interpret Coronavirus (PCR) Influenza Type A (PCR) Influenza Type B (PCR) RSV RNA Qual (PCR) Blood Type O Positive Antibody Screen NEGATIVE Crossmatch See Detail 03/19/20 03/19/20 03/19/20 13:38 13:38 13:44 WBC 7.8 RBC 2.81 L Hgb 8.4 L Hct 26.3 L MCV 93.6 MCH 29.9 MCHC 31.9 RDW 13.0 Plt Count 166 MPV 12.6 H Immature Gran % (Auto) 0.6 H Neut % (Auto) 58.5 Lymph % (Auto) 30.2 [place] % (Auto) 9.0 Eos % (Auto) 1.4 Baso % (Auto) 0.3 Lymph # (Auto) 2.3 [place] # (Auto) 0.7 Eos # (Auto) 0.1 Baso # (Auto) 0.0 Abs Immat Gran (auto) 0.05 H Absolute Neuts (auto) 4.5 Absolute Nucleated RBC 0.000 Nucleated RBC % (auto) 0.0 PT 12.2 INR 1.0 APTT 31.0 Sodium Potassium Chloride Carbon Dioxide Anion Gap BUN Creatinine Estim Creat Clear Calc Estimated GFR Random Glucose Calcium Magnesium Total Bilirubin AST ALT Alkaline Phosphatase Troponin I High Sens 6.0 Total Protein Albumin Urine Color Urine Appearance Urine pH Ur Specific [place] Urine Protein Urine Glucose (UA) Urine Ketones Urine Blood Urine Nitrite Ur Leukocyte Esterase Urine RBC Urine WBC Ur Squamous Epith Cells Amorphous Sediment Urine Bacteria Stool Occult Blood Stool Leukocytes, Qual C. difficile Toxin A&B C. difficile Antigen C. difficile Interpret Coronavirus (PCR) Influenza Type A (PCR) Influenza Type B (PCR) RSV RNA Qual (PCR) Blood Type Antibody Screen Crossmatch 03/19/20 03/19/20 03/20/20 13:44 14:28 06:26 WBC 7.2 RBC 3.42 L D Hgb 10.0 L Hct 31.5 L MCV 92.1 MCH 29.2 MCHC 31.7 RDW 14.4 Plt Count 165 MPV 13.0 H Immature Gran % (Auto) Neut % (Auto) Lymph % (Auto) [place] % (Auto) Eos % (Auto) Baso % (Auto) Lymph # (Auto) [place] # (Auto) Eos # (Auto) Baso # (Auto) Abs Immat Gran (auto) Absolute Neuts (auto) Absolute Nucleated RBC 0.000 Nucleated RBC % (auto) 0.0 PT INR APTT Sodium 136 Potassium 4.3 Chloride 102 Carbon Dioxide 29 Anion Gap 9 L BUN 12 Creatinine 0.99 Estim Creat Clear Calc 110.6 Estimated GFR > 60 Random Glucose 115 Calcium 8.6 Magnesium 2.1 Total Bilirubin 0.3 AST 32 ALT 59 H Alkaline Phosphatase 70 Troponin I High Sens Total Protein 6.2 L Albumin 4.0 Urine Color Urine Appearance Urine pH Ur Specific [place] Urine Protein Urine Glucose (UA) Urine Ketones Urine Blood Urine Nitrite Ur Leukocyte Esterase Urine RBC Urine WBC Ur Squamous Epith Cells Amorphous Sediment Urine Bacteria Stool Occult Blood Stool Leukocytes, Qual C. difficile Toxin A&B C. difficile Antigen C. difficile Interpret Coronavirus (PCR) NEGATIVE Influenza Type A (PCR) NEGATIVE Influenza Type B (PCR) NEGATIVE RSV RNA Qual (PCR) NEGATIVE Blood Type Antibody Screen Crossmatch 03/20/20 03/20/20 03/20/20 06:26 15:07 15:07 WBC RBC Hgb Hct MCV MCH MCHC RDW Plt Count MPV Immature Gran % (Auto) Neut % (Auto) Lymph % (Auto) [place] % (Auto) Eos % (Auto) Baso % (Auto) Lymph # (Auto) [place] # (Auto) Eos # (Auto) Baso # (Auto) Abs Immat Gran (auto) Absolute Neuts (auto) Absolute Nucleated RBC Nucleated RBC % (auto) PT INR APTT Sodium 140 Potassium 4.6 Chloride 105 Carbon Dioxide 29 Anion Gap 11 L BUN 11 Creatinine 1.02 Estim Creat Clear Calc 107.3 Estimated GFR > 60 Random Glucose 94 Calcium 8.7 Magnesium Total Bilirubin AST ALT Alkaline Phosphatase Troponin I High Sens Total Protein Albumin Urine Color Urine Appearance Urine pH Ur Specific [place] Urine Protein Urine Glucose (UA) Urine Ketones Urine Blood Urine Nitrite Ur Leukocyte Esterase Urine RBC Urine WBC Ur Squamous Epith Cells Amorphous Sediment Urine Bacteria Stool Occult Blood Stool Leukocytes, Qual NEGATIVE C. difficile Toxin A&B Negative C. difficile Antigen Negative C. difficile Interpret SEE NOTE Coronavirus (PCR) Influenza Type A (PCR) Influenza Type B (PCR) RSV RNA Qual (PCR) Blood Type Antibody Screen Crossmatch 03/21/20 06:15 WBC 7.3 RBC 3.62 L Hgb 10.5 L Hct 33.2 L MCV 91.7 MCH 29.0 MCHC 31.6 RDW 14.2 Plt Count 175 MPV 12.8 H Immature Gran % (Auto) Neut % (Auto) Lymph % (Auto) [place] % (Auto) Eos % (Auto) Baso % (Auto) Lymph # (Auto) [place] # (Auto) Eos # (Auto) Baso # (Auto) Abs Immat Gran (auto) Absolute Neuts (auto) Absolute Nucleated RBC 0.000 Nucleated RBC % (auto) 0.0 PT INR APTT Sodium Potassium Chloride Carbon Dioxide Anion Gap BUN Creatinine Estim Creat Clear Calc Estimated GFR Random Glucose Calcium Magnesium Total Bilirubin AST ALT Alkaline Phosphatase Troponin I High Sens Total Protein Albumin Urine Color Urine Appearance Urine pH Ur Specific [place] Urine Protein Urine Glucose (UA) Urine Ketones Urine Blood Urine Nitrite Ur Leukocyte Esterase Urine RBC Urine WBC Ur Squamous Epith Cells Amorphous Sediment Urine Bacteria Stool Occult Blood Stool Leukocytes, Qual C. difficile Toxin A&B C. difficile Antigen C. difficile Interpret Coronavirus (PCR) Influenza Type A (PCR) Influenza Type B (PCR) RSV RNA Qual (PCR) Blood Type Antibody Screen Crossmatch Airway Mallampati Class: II TM Dist: >3cm Neck ROM: Full Heart: RRR Lungs: CTA
[2020-03-22] MEDS: Lactated Ringers 1,000 ML 50 ML IVCONT (09:38)
--- NOTE | 2020-03-22 10:09 | MHC.SHP ---
Pre-Procedural Eval Section A The patient is an INPATIENT: Yes The History & Physical has been completed within 30 days and I have reviewed it.: Yes Section B Chief Complaint: MULTPILE COMPLAINTS Allergies: Allergies Allergy/AdvReac Type Severity Reaction Status Date / Time No Known Allergies Allergy Verified 03/22/20 08:59 [No Known Allergies*] Plan I have reviewed the history and physical and performed a pertinent physical examination on my patient. No changes have occurred unless specified.
--- NOTE | 2020-03-22 10:11 | P.BOP_ITS ---
Brief Operative Note Date of Service: 03/22/20 Pre-op diagnosis: melena Post-op diagnosis: same Procedure: Procedure Description: EGD FLEXIBLE TRANSORAL UPPER GASTROINTESTINAL ENDOSCOPY UPPER ENDOSCOPY Consent: Indications for the procedure and potential complications of bleeding, perforation, reaction to medications and missed diagnosis were discussed with the patient and informed consent was obtained. Instrument: Olympus GIF H 190 J mid size upper endoscope Monitoring: Vital signs and clinical assessment, continuous EKG monitoring, Pulse oximetry, Carbon Dioxide monitoring and blood pressure monitoring were done throughout the procedure. Procedure: The patient was placed in the left lateral decubitis position and pre-procedure medications were administered and a bite block was placed. The endoscope was inserted into the mouth and advanced under direct vision to the third part of duodenum. A careful inspection was made as the upper endoscope was withdrawn including a retroflexed examination of the proximal stomach; Findings and interventions are described below. Findings: Larynx:normal Esophagus: GE junction at 40 cm, diaphragm hiatus at 40 cm, no varices or eso phagitis. Stomach: normal mucosa. Biopsies were obtained for checking for h pylori. Grade 2 flap valve on retroflexed examination of the cardia. Duodenum: clean based ulcer stellate shaped in the proximal duodenal bulb measuring about 10 mm in diameter, Rashad grade III, no visible vessels or bleeding Intervention: Biopsies as noted above Impression/Findings: duodenal ulcer PLAN: Can eat regular diet, risk of rebleeding <5% cont with PPI, can use pantoprazole 40 mg daily if H pylori pos then treat ok to go home today f/u in office in 6-8 weeks Surgeon: Craig Dye MD Anesthesia: MAC Estimated blood loss (mL): 0 Condition: stable Disposition: PACU
--- NOTE | 2020-03-22 11:16 | P.DS_ITS ---
DS: Providers Provider Date of admission: 03/19/20 15:53 Primary care physician: Unknown Physician Consults: 03/19/20 17:40 Consult to Gastroenterology Routine Consulting Provider: Craig Dye Reason for consultation: Evaluation of Melena, symptomatic anemia, epigastric pain DS: Diagnosis Discharge Diagnosis (1) Acute upper gastrointestinal bleeding: Status: Acute (2) Acute blood loss anemia: Status: Acute (3) Symptomatic anemia: Status: Acute DS: Medications Discharge Medications Home Medications: Previous Rx's Medication Instructions Recorded pantoprazole 40 mg PO DAILY #30 tab 03/22/20 DS: Summary Hospital Course Hospital Course: A 30 years old male with no significant past medical history presenting to the hospital with complaint of weakness, shortness of breath, chest tightness and epigastric pain the last week or so. He reports a eating a meat sandwhich almost 1 week ago which she was unable to finish the same time and finished it almost 2 days later but noticed directly after that nausea and few episodes of diarrhea with no vomiting, fever or chills. During the last week he became more lethargic and the pills shortness of breath with exertion. He reports chest tightness as well with minimal activities. No chest pain or palpitation. Going to the bathroom for the last 4 days he was noticing dark stool with no blood. He presented to the emergency today for further evaluation of melena and weakness. Hospital course The patient was admitted to the hospital for evaluation of symptomatic anemia and melena. He was treated primarily as upper GI bleed with IV pantoprazole and 1 unit blood transfusion to improve his hemoglobin from 8-10. His blood level remained stable during the hospital stay with no reported episodes bleeding. Evaluated by Gastroenterology who recommended upper endoscopy that was done earlier this morning showing clear based duodenal ulcer with no active bleeding. Recommended to be discharged home on p.o. pantoprazole and follow-up with Gastroenterology as outpatient for Helicobacter pylori results and further workup. Time Spent with Patient Time attestation: Total time spent providing and/or coordinating discharge services: Physical Exam Vital Signs: Vital Signs: Last Vital Signs Temp 98 F 03/22/20 10:48 Pulse 78 03/22/20 10:48 Resp 14 03/22/20 10:48 BP 103/63 03/22/20 10:48 Pulse Ox 100 03/22/20 10:48 Body Mass Index 26.6 Constitutional : Alert, oriented, not in distress Neck : Normal inspection, Supple Cardiovascular : RRR, S1 S2, no lower extremity edema Respiratory : Good bilateral air entry, no crackles, wheezes or rhonchi Gastrointestinal: soft, lax, Normal bowel sounds, Non tender Skin : Warm/Dry, No rash Neurological : Alert & oriented x3, No focal deficit DS: Data Data Completed and Pending Pending studies at discharge: Pending at discharge 03/22/20 10:05 Surgical [PTH] Routine Labs on day of discharge: 03/19/20 13:14 0.9 % Sodium Chloride [Ns] 1,000 ml IV 999 mls/hr 03/19/20 13:37 Red Blood Cells Stat Type and Screen Stat OBSX1 Stat UA ClnCatch+Micro w/rflx Cult Stat 03/19/20 13:38 Complete Blood Count Auto Diff Stat Troponin-I High Sensitivity Stat 03/19/20 13:44 Comprehensive Met. Panel Stat Magnesium Stat Partial Thromboplastin Time Stat Prothrombin Time INR Stat 03/19/20 14:09 ECG 12 lead EKG Stat EKG Documentation DIRECTED 03/19/20 14:11 CT abdomen pelvis w con Stat 03/19/20 14:22 Add Laboratory Test Stat 03/19/20 14:24 CDiff with Reflex to PCR Stat Leukocytes Stool Qualitative Stat 03/19/20 14:26 Pantoprazole Sodium [Protonix] 80 mg IVPUSH ONCE ONE 03/19/20 14:28 SARS-CoV2/FLU/RSV Stat 03/19/20 14:58 Stool Culture Stat 03/19/20 14:59 iohexoL 350 MG/ML [Omnipaque 350 MG/ML] 85 ml IV ONCE ONE 03/19/20 15:50 Transfer Order Routine 03/20/20 06:26 Basic Metabolic Panel DAILY@0600 Complete Blood Count no Diff DAILY@0600 03/20/20 Breakfast Regular Diet 03/21/20 06:15 Complete Blood Count no Diff DAILY@0600 03/21/20 Dinner NPO Diet 03/22/20 09:29 Lidocaine HCl 2 % MPF [Xylocaine 2 % MPF] 5 ml .ROUTE .STK-MED ONE 03/22/20 09:30 propofoL [Diprivan] 200 mg IVPUSH .STK-MED ONE 03/22/20 09:58 Simethicone [Mylicon Infant's] 40 mg .ROUTE .STK-MED ONE 03/22/20 Breakfast NPO Diet 03/22/20 10:01 propofoL [Diprivan] 200 mg IVPUSH .STK-MED ONE Laboratory Last Values WBC 7.3 X10*3/uL (4.8-10.8) 03/21/20 06:15 RBC 3.62 X10*6/uL (4.60-5.80) L 03/21/20 06:15 Hgb 10.5 g/dl (14.0-18.0) L 03/21/20 06:15 Hct 33.2 % (42-52) L 03/21/20 06:15 MCV 91.7 fL (80-98) 03/21/20 06:15 MCH 29.0 pg (27.0-33.0) 03/21/20 06:15 MCHC 31.6 g/dl (31.0-36.0) 03/21/20 06:15 RDW 14.2 % (11.0-16.0) 03/21/20 06:15 Plt Count 175 X10*3/uL (160-400) 03/21/20 06:15 MPV 12.8 fL (9.4-12.4) H 03/21/20 06:15 Immature Gran % (Auto) 0.6 % (0.0-0.4) H 03/19/20 13:38 Neut % (Auto) 58.5 % (45-73) 03/19/20 13:38 Lymph % (Auto) 30.2 % (20-40) 03/19/20 13:38 [place] % (Auto) 9.0 % (2-11) 03/19/20 13:38 Eos % (Auto) 1.4 % (0-4) 03/19/20 13:38 Baso % (Auto) 0.3 % (0-2) 03/19/20 13:38 Lymph # (Auto) 2.3 X10*3/uL (1.2-4.9) 03/19/20 13:38 [place] # (Auto) 0.7 X10*3/uL (0.1-1.2) 03/19/20 13:38 Eos # (Auto) 0.1 X10*3/uL (0.0-0.4) 03/19/20 13:38 Baso # (Auto) 0.0 X10*3/uL (0.0-0.2) 03/19/20 13:38 Abs Immat Gran (auto) 0.05 X10*3/uL (0.00-0.03) H 03/19/20 13:38 Absolute Neuts (auto) 4.5 X10*3/uL (2.0-8.3) 03/19/20 13:38 Absolute Nucleated RBC 0.000 X10*3/uL (0.0-0.012) 03/21/20 06:15 Nucleated RBC % (auto) 0.0 /100WBC (0.0-0.2) 03/21/20 06:15 PT 12.2 SEC (10.8-13.0) 03/19/20 13:44 INR 1.0 (0.9-1.1) 03/19/20 13:44 APTT 31.0 SEC (24.1-38.0) 03/19/20 13:44 Sodium 140 mmol/L (135-145) 03/20/20 06:26 Potassium 4.6 mmol/l (3.3-5.1) 03/20/20 06:26 Chloride 105 mmol/L (96-108) 03/20/20 06:26 Carbon Dioxide 29 mmol/L (22-29) 03/20/20 06:26 Anion Gap 11 (12-20) L 03/20/20 06:26 BUN 11 mg/dL (9-16) 03/20/20 06:26 Creatinine 1.02 mg/dL (0.5-1.4) 03/20/20 06:26 Estim Creat Clear Calc 107.3 03/20/20 06:26 Estimated GFR > 60 03/20/20 06:26 Random Glucose 94 mg/dL (60-115) 03/20/20 06:26 Calcium 8.7 mg/dL (8.4-10.2) 03/20/20 06:26 Magnesium 2.1 mg/dL (1.6-2.6) 03/19/20 13:44 Total Bilirubin 0.3 mg/dL (0.0-1.0) 03/19/20 13:44 AST 32 U/L (5-37) 03/19/20 13:44 ALT 59 U/L (0-40) H 03/19/20 13:44 Alkaline Phosphatase 70 U/L (39-117) 03/19/20 13:44 Troponin I High Sens 6.0 ng/L (<3.5-35.0) 03/19/20 13:38 Total Protein 6.2 g/dL (6.5-8.0) L 03/19/20 13:44 Albumin 4.0 g/dL (3.5-5.0) 03/19/20 13:44 Urine Color YELLOW 03/19/20 13:37 Urine Appearance HAZY 03/19/20 13:37 Urine pH 7.5 (5.0-8.0) 03/19/20 13:37 Ur Specific [place] 1.025 (1.005-1.025) 03/19/20 13:37 Urine Protein NEG MG/DL (NEG-TRACE) 03/19/20 13:37 Urine Glucose (UA) NEG MG/DL (NEG) 03/19/20 13:37 Urine Ketones NEG MG/DL (NEG) 03/19/20 13:37 Urine Blood NEG (NEG) 03/19/20 13:37 Urine Nitrite NEG (NEG) 03/19/20 13:37 Ur Leukocyte Esterase NEG (NEG) 03/19/20 13:37 Urine RBC 0 /HPF (0) 03/19/20 13:37 Urine WBC 0-2 /HPF (0-4) 03/19/20 13:37 Ur Squamous Epith Cells NONE /LPF 03/19/20 13:37 Amorphous Sediment 2+ /LPF 03/19/20 13:37 Urine Bacteria NONE /LPF 03/19/20 13:37 Stool Occult Blood POS (NEG) 03/19/20 13:37 Stool Leukocytes, Qual NEGATIVE (NEGATIVE) 03/20/20 15:07 C. difficile Toxin A&B Negative (Negative) 03/20/20 15:07 C. difficile Antigen Negative (Negative) 03/20/20 15:07 C. difficile Interpret SEE NOTE 03/20/20 15:07 Coronavirus (PCR) NEGATIVE (Negative) 03/19/20 14:28 Influenza Type A (PCR) NEGATIVE (Negative) 12/25/20 14:28 Influenza Type B (PCR) NEGATIVE (Negative) 03/19/20 14:28 RSV RNA Qual (PCR) NEGATIVE (Negative) 03/19/20 14:28 Blood Type O Positive 03/19/20 13:37 Antibody Screen NEGATIVE 03/19/20 13:37 Crossmatch See Detail 03/19/20 13:37 Discharge Plan Discharge Patient Disposition: Home, Self-Care Referrals: Physician,Unknown [Primary Care Provider] - Discharge Medications: New pantoprazole 40 mg tablet,delayed release (DR/EC) 40 mg PO DAILY Qty: 30 RF: 2 Discharge Orders: Discharge Order (Routine); Ordered 03/22/20 Ordered By: Liz Mercado Diet: advance to usual diet Activity on Discharge: As tolerated Stand Alone Forms: Work/School Release Discharge Date/Time: 03/22/20 13:33 Visit Report Forms: Patient Portal Discharge page Care Plan Goals: Read below Health Concerns: Read below Plan of Treatment: You were admitted to the hospital for evaluation of lethargy and shortness of breath with dark stool. Noticed to have low blood level as a result of gastrointestinal bleeding. You were treated with blood transfusion, IV fluid and IV pantoprazole with good response over the course of hospital stay as your hemoglobin level remained stable. You were evaluated by Dr. Dye from GI who did endoscopy showing a nonbleeding duodenal ulcer. Continue pantoprazole once daily Avoid Advil, Aleve and alcohol To follow-up with Dr. Dye in the office in 3-4 weeks for follow-up.
--- NOTE | 2020-03-22 11:50 | MHC.CM.PN ---
Pt is discharged today to home. He has been scoped biopsies sent. he will go to home, with no services. His will provide transport to home. A work note was provided by Dr Mercado. Pt is to return to work next Sunday.
== END 2020-03-22 13:33 | disposition home or self-care (01) | DRG 241 ==
LOC: HO.ED 15:46 → HO.IMC 16:22
PROVIDERS: Internal Medicine Gastroenterology; Nurse Practitioner Primary Care; Admitting Provider Student in an Organized Health Care Education/Training Program; Emergency Provider Emergency Medicine; Visit Provider Student in an Organized Health Care Education/Training Program
PROC: 0DJ08ZZ Inspection of Upper Intestinal Tract, Via Natural or Artificial Opening Endoscopic (ICD-10-PCS; CPT 43235; principal; 2020-03-22 09:30)
DX: K26.4 Chronic or unspecified duodenal ulcer with hemorrhage (principal); K44.9 Diaphragmatic hernia without obstruction or gangrene; D62 Acute posthemorrhagic anemia; Z20.828 Contact with and (suspected) exposure to other viral communicable diseases
CPT/HCPCS: 0241U; 36415; 36430; 74177; 80048; 80053; 81001; 82272; 83735; 84484; 85025; 85027; 85610; 85730; 86850; 86900; 86901; 86920; 86923; 87045; 87046; 87324; 87449; 88305; 88342; 89055; 93005; 96361; 96374; 99283; 99285; P9016; Q9967

== ENCOUNTER 2020-04-20 14:15 | Outpatient (REF) | payer MEDICAID, SELFPAY ==
[2020-04-21 09:26] LABS: CDIFF Ag Negative (Negative); CDIFF Internal ctrl Dots and bkg OK (V); CDiff Toxin Negative (Negative)
== END 2020-04-20 14:16 | disposition home or self-care (01) ==
LOC: HO.LNP 14:15
PROVIDERS: Visit Provider Internal Medicine Gastroenterology
DX: Z87.19 Personal history of other diseases of the digestive system (principal)
CPT/HCPCS: 87324; 87449; 99212

== ENCOUNTER 2020-07-13 15:33 | Outpatient (REF) | payer MEDICAID, SELFPAY ==
[2020-07-14 14:31] LABS: H Pylori Breath Test NOT DETECTED (NOT DETECTED)
== END 2020-07-13 15:34 | disposition home or self-care (01) ==
LOC: HO.LNP 15:33
PROVIDERS: Visit Provider Internal Medicine Gastroenterology
DX: Z87.19 Personal history of other diseases of the digestive system (principal)
CPT/HCPCS: 83013; 99212

== ENCOUNTER 2020-09-09 08:26 | Day surgery (SDC) | payer MEDICAID, SELFPAY ==
[2020-09-03 14:37] VITALS: BMI 30.7
--- NOTE | 2020-09-07 13:08 | HO.ANESPROP2 ---
Documented by User: Hermelinda Partida 09/07/20 13:09 HPI - Anesthesia Eval Consult details Narrative: 30yo M for Upper Endoscopy and Colonoscopy s/p EGD with TIVA 02/2020 [facility] Active Problems Active Problems: All Active Problems (Updated 04/20/20 @ 15:07 by Craig Dye MD) History of pyloric channel ulcer (Acute) Past Medical History Medical History Anemia Gastroenteritis Social History Social History Household Members: Spouse Housing: Apartment Alcohol intake: never Patient Tobacco Use Status: Never used Tobacco Have you been hit, kicked, punched, or otherwise hurt by someone within the past year? If so, by whom?: No Are you DNR?: No Advance Directives: No Advance Directives Information Provided: Yes Nutrition Risks: No Nutritional Risk service: No Current occupational status: employed Current occupation: [employer] Allergies Allergy/AdvReac Type Severity Reaction Status Date / Time No Known Allergies Allergy Verified 07/13/20 15:34 [No Known Allergies*] Exam Exam Date and Time: September 07, 2020 1308 Height,Weight and Vital Signs: Height 5 ft 6 in Weight 86.183 kg Assessment and Plan Assessment Anesthesia Assessment: Chart Reviewed Documented by User: Se Abraham MD 09/09/20 09:02 [facility] Past Medical History Medical History Anemia Gastroenteritis Social History Social History Household Members: Spouse Housing: Apartment Alcohol intake: never Patient Tobacco Use Status: Never used Tobacco Have you been hit, kicked, punched, or otherwise hurt by someone within the past year? 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 Allergies Allergy/AdvReac Type Severity Reaction Status Date / Time No Known Allergies Allergy Verified 07/13/20 15:34 [No Known Allergies*] Exam Airway Mallampati Class: II TM Dist: >3cm Loose/Missing/Broken Teeth: No Heart: RRRNL Assessment and Plan Assessment Anesthesia Assessment: Anesthesia Plan Discussed and Chart Reviewed Final Anesthetic Review NPO: Yes ASA Class: II Final Preanesthetic Review: No Changes in Pt Med Stat, Meds/Allgs Chart Reviewed, Consent Obtained/Reviewed and Anes Risks/Benef Reviewed Patient Risk: Low Procedure Risk: Low Anesthetic Plan Anesthetic Plan: MAC: Disposition: Standard PACU
[2020-09-09 08:35] VITALS: BP 147/56; PULSE 87; RESP 20; TEMP 36.9; O2SAT 98
[2020-09-09] MEDS: Lactated Ringers 1,000 ML 100 ML IVCONT (08:46)
--- NOTE | 2020-09-09 09:05 | MHC.SHP ---
Pre-Procedural Eval Section B Chief Complaint: hx of digestive system disease Relevant Family History (Specify if Yes): No Relevant Social History: None Present Medications: see Short Stay Collaborative assessment Medical History: Significant History (Anemia Gastroenteritis, peptic ulcer) History of Previous Operations: Relevant previous surgery/procedure and date(s) (EGD) Allergies: Allergies Allergy/AdvReac Type Severity Reaction Status Date / Time No Known Allergies Allergy Verified 07/13/20 15:34 [No Known Allergies*] Review of Systems Sugical H&P ROS: Negative: Constitution, Cardiovascular, Respiratory, Neurological, Psychiatric, Hem-Onc, Allergic/Immunologic, Gastrointestinal, Genitourinary, Musculoskeletal, Integumentary, Endocrine and Eyes/Ears/Nose/Throat Exam Surgical H&P Exam: Normal: HEENT, Normal: Heart, Normal: Lungs, Normal: Extremities, Normal: Abdomen, Normal: Skin and Normal: Neurological Plan Diagnosis/Plan: Unchanged I have reviewed the history and physical and performed a pertinent physical examination on my patient. No changes have occurred unless specified. EGD and colonoscopy for evaluation of diarrhea and check for ulcer healing
--- NOTE | 2020-09-09 09:07 | P.OP_ITS ---
Operative Note Operative Note Date of Service: 09/09/20 Narrative: Operative Information Procedure Description: EGD, Colonoscopy FLEXIBLE TRANSORAL UPPER GASTROINTESTINAL ENDOSCOPY AND COLONOSCOPY PROCEDURE NOTE UPPER ENDOSCOPY Consent: Indications for the procedure and potential complications of bleeding, perforation, reaction to medications and missed diagnosis were discussed with the patient and informed consent was obtained. Instrument: Olympus GIF H 190 J mid size upper endoscope Monitoring: Vital signs and clinical assessment, continuous EKG monitoring, Pulse oximetry, Carbon Dioxide monitoring and blood pressure monitoring were done throughout the procedure. Procedure: The patient was placed in the left lateral decubitis position and pre-procedure medications were administered and a bite block was placed. The endoscope was inserted into the mouth and advanced under direct vision to the third part of duodenum. A careful inspection was made as the upper endoscope was withdrawn including a retroflexed examination of the proximal stomach; Findings and interventions are described below. Findings: Larynx:normal Esophagus: GE junction at 40 cm, diaphragm hiatus at 40 cm, normal mucosa Stomach: Mild atrophy and erythema at antrum. Biopsies were obtained. Grade 2 flap valve on retroflexed examination of the cardia. Duodenum: Mild bulbar duodenitis, slight anatomical distortion of bulb from h ealing, bx taken Intervention: Biopsies as noted above COLONOSCOPY Instrument: Olympus variable stiffness pediatric scope 190L Colonoscopy Monitoring: Vital signs and clinical assessment, continuous EKG monitoring, Pulse oximetry, Carbon Dioxide monitoring and blood pressure monitoring were done throughout the procedure. Colon withdrawal time was 11 minutes. Procedure: The patient was placed in the left lateral decubitis position and pre-procedure medications were administered. After a digital rectal examination of the ano-rectum, the video colonoscope was inserted into the rectum and advanced through the colon to the cecum/TI. The colonoscope was slowly withdrawn in a retrograde panoramic fashion and the colon mucosa was carefully examined including a retroflexed view of the rectum. Findings and interventions are described below. Procedure Difficulty:easy Findings: TI bx and random colon bx taken Terminal Ileum-normal Cecum:normal Ascending Colon: normal Transverse Colon -normal Descending Colon:normal Sigmoid Colon: normal Rectum: Retroflexion with small internal hemorrhoids, grade I Anorectum - normal Colon preparation: [place] Bowel Preparation Scale Right colon; 3 Transverse colon: 3 Left colon; 3 (0 = Unprepared colon segment with mucosa not seen due to solid stool that cannot be cleared. 1 = Portion of mucosa of the colon segment seen, but other areas of the colon segment not well seen due to staining, residual stool and/or opaque liquid. 2 = Minor amount of residual staining, small fragments of stool and/or opaque li quid, but mucosa of colon segment seen well. 3 = Entire mucosa of colon segment seen well with no residual staining, small fragments of stool or opaque liquid) Impression and Post Procedure Diagnosis: Endoscopy Findings: duodenitis gastritis Colonoscopy Findings: internal hemorrhoids Plan: Await Pathology results Repeat Colonoscopy at age 43 years for screening or earlier if clinically indica sanjana High fiber diet leaflet avoid straining at stool, epsom salts and sitz bath, anusol supps or cream If h pylori pos retreat, otherwise may benefit from low dose PPI Above findings were reviewed with the patient and relevant handouts were provided if indicated.
--- NOTE | 2020-09-09 09:07 | PM.OP ---
Brief Operative Note Date of Service: 09/09/20 Pre-op diagnosis: hx of gastric ulcer, check for healing also diarrhea Post-op diagnosis: same Procedure: see op note Surgeon: Craig Dye MD Anesthesia: MAC Was an Jig Mill Operator used for this Procedure?: No Estimated blood loss (mL): 0 Condition: stable Disposition: PACU
[2020-09-09 09:42] VITALS: BP 110/63; PULSE 79; RESP 12; TEMP 36.3; O2SAT 97
[2020-09-09 09:57] VITALS: BP 117/72; PULSE 90; RESP 16; TEMP 36.3; O2SAT 100
== END 2020-09-09 10:21 | disposition home or self-care (01) ==
PROVIDERS: Visit Provider Internal Medicine Gastroenterology
PROC: (CPT 45380; principal; 2020-09-09 10:20)
DX: R19.7 Diarrhea, unspecified (principal); K64.0 First degree hemorrhoids; K29.80 Duodenitis without bleeding; Z87.11 Personal history of peptic ulcer disease; K29.50 Unspecified chronic gastritis without bleeding; K44.9 Diaphragmatic hernia without obstruction or gangrene; Z79.899 Other long term (current) drug therapy
CPT/HCPCS: 45380; 43239; 88305; 88342; J3010

== ENCOUNTER → 2020-10-05 09:56 | Outpatient (BNVA) | payer MEDICAID, SELFPAY | PROVIDERS: Visit Provider Internal Medicine Gastroenterology ==

== ENCOUNTER → 2021-05-09 10:58 | Outpatient (BNVA) | payer MEDICAID, SELFPAY | PROVIDERS: Visit Provider Internal Medicine Gastroenterology | DX: D62 Acute posthemorrhagic anemia (principal) | CPT/HCPCS: 99212 ==

== ENCOUNTER 2024-04-21 20:21 | Emergency (ER) | payer MEDICAID, SELFPAY ==
--- NOTE | ~2024-04-21 | CT_ITS ---
CLINICAL HISTORY: blurry vision, headache CT head without contrast Comparison: None Findings: No intra-axial mass, midline shift, hydrocephalus, or acute hemorrhage. No significant atrophy-like change or white matter disease. Moderate mucosal thickening opacification of the left maxillary sinus with air-fluid level. The orbits are within normal limits. No skull fracture. IMPRESSION: 1. No acute intracranial findings. 2. Left maxillary acute sinusitis. This document has been electronically signed by: Chavo Nguyễn MD on 04/21/2024 21:55:22
[2024-04-21 20:27] VITALS: BP 129/86; PULSE 61; RESP 16; TEMP 36.8; O2SAT 100; BMI 27.4
--- NOTE | 2024-04-21 20:31 | ED_ITS ---
HPI - General Adult General Chief complaint: Headache Stated complaint: severe headache,blurry vision Time Seen by Provider: 04/21/24 23:15 Source: patient Limitations: language barrier History of Present Illness ED Provider: Lily Vanessa PA-C HPI narrative: 34-year-old otherwise healthy male presents with headache and facial pain times 3 days. Headache is constant and frontal in nature, unable to describe the pain. Associated nasal congestion, sore throat and generalized myalgias. Patient was not sure if he has had a fever at home, however he has had chills. Denies neck pain. Related Data Previous Rx's ?Medication ?Instructions ?Recorded amoxicillin 500 mg capsule 1,000 mg (2 x 500 mg) PO BID 14 03/30/20 days #56 caps levofloxacin 500 mg tablet 500 mg PO DAILY #14 tabs 03/30/20 pantoprazole 40 mg tablet,delayed 40 mg PO BID 14 days #28 tabs 03/30/20 release ondansetron 4 mg disintegrating 4 mg PO Q8H PRN nausea and 08/04/20 tablet vomiting #30 tabs pantoprazole 20 mg tablet,delayed 20 mg PO DAILY #60 tabs 10/05/20 release sucralfate 100 mg/mL oral 10 ml PO BID #1,000 mL 10/12/20 suspension (Carafate) amoxicillin 875 mg-potassium 1 tab PO BID #19 tabs 04/22/24 clavulanate 125 mg tablet Allergies Allergy/AdvReac Type Severity Reaction Status Date / Time No Known Allergies Allergy Verified 04/21/24 20:29 [No Known Allergies*] Review of Systems 2 Review of Systems: Yes all other systems are reviewed and are negative Constitutional: Constitutional: Reports fatigue, Reports fever(s), Reports headache(s) and Reports malaise ENT: Reports headache(s), Reports nasal congestion, Denies neck pain, Reports post nasal drip and Reports sore throat Cardiovascular: Cardiovascular: Denies chest pain and Denies dyspnea Respiratory: Respiratory: Denies cough and Denies dyspnea Musculoskeletal: Musculoskeletal: Denies neck pain Neurologic: Reports headache(s) Endocrine: Endocrine: Reports fatigue PMFSH Past Medical History Attestation statement: The following information was validated with the patient. 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 Physical Exam ED Vital Signs: Vital Signs - 24 hr 04/21/24 20:27 Temperature 98.2 F Pulse Rate 61 Respiratory Rate 16 Blood Pressure 129/86 Pulse Oximetry 100 Oxygen Delivery Method Room Air BMI result Body Mass Index 27.4 Const Other: Alert, well-appearing Orientation/consciousness: patient oriented x3 Neck Other: Full range of motion no meningeal signs Resp Effort & Inspection: normal respiratory effort Cardio Other: Normal peripheral perfusion Skin Other: Warm dry no rash Neuro General: patient oriented x3, no focal motor deficits and CN's II-XI intact bilaterally Psych Other: Cooperative Course Course Course Narrative: RME performed by Yamini Mulligan PA-C. Patient is a 34 year old assigned male at presenting to the emergency department with a headache, dizziness, and blurred vision. Patient states that over the last 2 days he has had a headache, dizziness, and blurred vision. Detailed physical exam and review of systems are deferred to the assistant teacher primary. Labs, imaging, and swabs ordered. Patient placed back in the waiting room pending room availability and results. Medical Decision Making Medical Decision Making [facility] Narrative: 34-year-old otherwise healthy male presents with headache and facial pain times 3 days. Headache is constant and frontal in nature, unable to describe the pain. Associated nasal congestion, sore throat and generalized myalgias. Patient was not sure if he has had a fever at home, however he has had chills. Denies neck pain. No chronic issues History: Per patient I have considered the following differential diagnoses: Viral syndrome, migraine, sinus headache, meningitis , intracranial hemorrhage Plan: Patient here with viral related symptoms with subjective fevers. Screening labs including a viral panel and a CT of the head were obtained from triage. Patient found to have sinusitis that is acute. We will treat with Augmentin. The headache he is experiencing is likely sinus related headache, he does not have any features of a migraine. Thought about intracranial hemorrhage, however there was no preceding trauma and he is neuro intact. Thought about meningitis, however there are no meningeal signs on exam and he denies neck pain. I have independently reviewed the following tests: Labs: No leukocytosis, not anemic, no electrolyte abnormality, viral panel negative CT head:Findings: No intra-axial mass, midline shift, hydrocephalus, or acute hemorrhage. No significant atrophy-like change or white matter disease. Moderate mucosal thickening opacification of the left maxillary sinus with air-fluid level. The orbits are within normal limits. No skull fracture. IMPRESSION: 1. No acute intracranial findings. 2. Left maxillary acute sinusitis. This document has been electronically signed by: Chavo Nguyễn MD on 04/21/2024 21:55:22 Lab Data 04/21/24 20:46 04/21/24 20:46 Labs: Lab Results 04/21/24 Range/Units 20:46 WBC 8.1 (4.8-10.8) X10*3/uL RBC 4.65 (4.60-5.80) X10*6/uL Hgb 13.6 L (14.0-18.0) g/dl Hct 42.4 (42.0-52.0) % MCV 91.2 (80.0-98.0) fL MCH 29.2 (27.0-33.0) pg MCHC 32.1 (31.0-36.0) g/dl RDW 12.4 (11.0-16.0) % Plt Count 155 L (160-400) X10*3/uL MPV 13.0 H (9.4-12.4) fL Immature Gran % (Auto) 0.7 H (0.0-0.4) % Neut % (Auto) 54.6 (45-73) % Lymph % (Auto) 33.1 (20-40) % Piute % (Auto) 9.4 (2-11) % Eos % (Auto) 2.0 (0-4) % Baso % (Auto) 0.2 (0-2) % Lymph # (Auto) 2.7 (1.2-4.9) X10*3/uL Piute # (Auto) 0.8 (0.1-1.2) X10*3/uL Eos # (Auto) 0.2 (0.0-0.4) X10*3/uL Baso # (Auto) 0.0 (0.0-0.2) X10*3/uL Abs Immat Gran (auto) 0.06 H (0.00-0.03) X10*3/uL Absolute Neuts (auto) 4.4 (2.0-8.3) x10*3/uL Absolute Nucleated RBC 0.000 (0.0-0.012) X10*3/uL Nucleated RBC % (auto) 0.0 (0.0-0.2) /100WBC Sodium 139 (135-145) mmol/L Potassium 3.9 (3.3-5.1) mmol/L Chloride 107 (96-108) mmol/L Carbon Dioxide 26 (22-29) mmol/L Anion Gap 10 L (12-20) BUN 21 H (9-16) mg/dL Creatinine 1.00 (0.5-1.4) mg/dL Estim Creat Clear Calc 103.1 Estimated GFR > 60 Random Glucose 96 (60-115) mg/dL Calcium 9.1 (8.4-10.2) mg/dL Magnesium 2.0 (1.6-2.6) mg/dL Total Bilirubin 0.3 (0.0-1.0) mg/dL AST 27 (5-37) U/L ALT 54 H (0-40) U/L Alkaline Phosphatase 87 (39-117) U/L Total Protein 7.2 (6.5-8.0) g/dL Albumin 4.1 (3.5-5.0) g/dL Influenza Type A (PCR) NEGATIVE (Negative) Influenza Type B (PCR) NEGATIVE (Negative) RSV RNA Qual (PCR) NEGATIVE (Negative) SARS-CoV-2 RNA (RT-PCR) NEGATIVE (Negative) Discharge Plan Discharge Clinical Impression: Sinusitis Patient Disposition: Home, Self-Care Instructions: Sinusitis (ED) Additional Instructions: All of your screening labs were normal including the viral panel. You were screened for influenza RSV and COVID. The CT scan revealed you have left-sided sinusitis. This is a bacterial infection. See home care instructions. Take the Augmentin as directed this is the antibiotic. Follow up with your primary care provider as needed. Your headache is secondary to the nasal congestion/sinusitis. You can use [id number] Tylenol 1000 mg taken every 8 hours, alternated with [id number] ibuprofen 600 mg taken every 6 hours with food. Prescriptions: New amoxicillin-pot clavulanate 875-125 mg tablet 1 tab PO BID Qty: 19 0RF No Action amoxicillin 500 mg capsule 1,000 mg PO BID 14 Days Qty: 56 0RF levofloxacin 500 mg tablet 500 mg PO DAILY Qty: 14 0RF pantoprazole 40 mg tablet,delayed release (DR/EC) 40 mg PO BID 14 Days Qty: 28 0RF ondansetron 4 mg tablet,disintegrating 4 mg PO Q8H PRN (Reason: nausea and vomiting) Qty: 30 2RF sucralfate [Carafate] 100 mg/mL suspension 10 ml PO BID Qty: 1000 0RF pantoprazole 20 mg tablet,delayed release (DR/EC) 20 mg PO DAILY Qty: 60 2RF Print Language: [place]
[2024-04-21 20:51] LABS: MANUAL DIFF FLAG NO
[2024-04-21 21:06] LABS: Basophils Percent Auto 0.2 % (0-2); Eosinophils Absolute Auto 0.2 X10*3/uL (0.0-0.4); Hematocrit 42.4 % (42.0-52.0); Hemoglobin 13.6 g/dl (14.0-18.0); Imm Gran Abs Auto 0.06 X10*3/uL (0.00-0.03); Imm Gran Pct Auto 0.7 % (0.0-0.4); Lymphocytes Absolute Auto 2.7 X10*3/uL (1.2-4.9); Lymphocytes Percent Auto 33.1 % (20-40); Mean Corpuscular HGB Conc 32.1 g/dl (31.0-36.0); Mean Corpuscular Hemoglobin 29.2 pg (27.0-33.0); Mean Corpuscular Volume 91.2 fL (80.0-98.0); Monocytes Absolute Auto 0.8 X10*3/uL (0.1-1.2); Monocytes Percent Auto 9.4 % (2-11); Neutrophils Absolute Auto 4.4 x10*3/uL (2.0-8.3); Neutrophils Percent Auto 54.6 % (45-73); Platelet Count 155 X10*3/uL (160-400); Red Blood Count 4.65 X10*6/uL (4.60-5.80); Red Cell Distribution Width 12.4 % (11.0-16.0); White Blood Count 8.1 X10*3/uL (4.8-10.8)
[2024-04-21 21:07] LABS: Alanine Aminotransferase 54 U/L (0-40); Albumin Level 4.1 g/dL (3.5-5.0); Alkaline Phosphatase 87 U/L (39-117); Anion Gap 10 (12-20); Aspartate Amino Transferase 27 U/L (5-37); Bilirubin Total 0.3 mg/dL (0.0-1.0); Blood Urea Nitrogen 21 mg/dL (9-16); Calcium 9.1 mg/dL (8.4-10.2); Carbon Dioxide 26 mmol/L (22-29); Chloride 107 mmol/L (96-108); Creatinine Clr Calc Pharmacy 103.1; Estimated Glomerular Filt Rate > 60; Glucose Random 96 mg/dL (60-115); Potassium 3.9 mmol/L (3.3-5.1); Sodium 139 mmol/L (135-145); Total Protein 7.2 g/dL (6.5-8.0)
[2024-04-21 21:29] LABS: Influenza A PCR NEGATIVE (Negative); Influenza B PCR NEGATIVE (Negative); Resp Syncy Virus RNA Qual PCR NEGATIVE (Negative); SARS COV2 PCR INHOUSE NEGATIVE (Negative)
[2024-04-22] MEDS: Amoxicillin/Potassium Clav 875 MG TABLET PO (00:20)
[2024-04-22 01:12] VITALS: BP 138/86; PULSE 58; RESP 14; TEMP 36.6; O2SAT 98
[2024-04-22 01:13] VITALS: BP 138/56; PULSE 58; RESP 14; TEMP 36.6; O2SAT 98
== END 2024-04-22 01:14 | disposition home or self-care (01) ==
PROVIDERS: Physician Assistant Medical; Emergency Provider Emergency Medicine
DX: J01.00 Acute maxillary sinusitis, unspecified (principal); R51.9 Headache, unspecified; J02.9 Acute pharyngitis, unspecified; Z03.818 Encounter for observation for suspected exposure to other biological agents ruled out
CPT/HCPCS: 0241U; 70450; 80053; 83735; 85025; 99283; 99284

== ENCOUNTER → 2024-04-21 20:32 | Outpatient (BNV) | payer MEDICAID, SELFPAY | PROVIDERS: Visit Provider Student in an Organized Health Care Education/Training Program | DX: J01.00 Acute maxillary sinusitis, unspecified (principal) | CPT/HCPCS: 70450 ==